=== PATIENT | female | born 1985 | race Caucasian/White ===

== ENCOUNTER 2016-05-04 06:10 | Emergency (ER) | payer BC ==
[~2016-05-04] VITALS: Ht 162.6 cm; Wt 63.5 kg
[2016-05-04 06:10] VITALS: BP 136/78; PULSE 70; RESP 18; TEMP 97; O2SAT 99
--- NOTE | 2016-05-04 06:10 | NUR ---
Patient to ER bed 8 to gown for evaluation. Side rails up. Report given to ERUM DOUGLAS.
--- NOTE | 2016-05-04 06:15 | NUR ---
PT IS AOX4, C/O RIGHT ARM PAIN X 4 DAYS THAT STARTED AT HER RIGHT SHOULDER WITH PAIN SCALE 8/10.
--- NOTE | 2016-05-04 06:20 | NUR ---
ER at bedside examining patient.
[2016-05-04] MEDS ORDERED: KETOROLAC TROMETHAMINE 30 MG VIAL IM ONE (06:45)
[2016-05-04 07:00] VITALS: BP 136/78; PULSE 70; RESP 18; TEMP 97; O2SAT 99
--- NOTE | 2016-05-04 07:00 | NUR ---
Patient given written and verbal discharge instructions and verbalizes understanding. ER MD discussed with patient the results and treatment provided. Patient in stable condition. ID arm band removed. Rx of TYLENOL WITH CODEINENO.3 AND IBUPROFEN 600 MG given. Patient educated on pain management and to follow up with PMD. Pain Scale 0/10. Opportunity for questions provided and answered.
== END 2016-05-04 07:00 | disposition home or self-care (01) ==
LOC: SED 06:10
DX: R20.8 Other disturbances of skin sensation (principal)
CPT/HCPCS: 96372; 99283; J1885